=== PATIENT | male | born 1970 | race Caucasian/White ===

== ENCOUNTER 2023-04-21 05:55 | Emergency (ER) | payer BC, SELFPAY ==
[2023-04-21 06:05] VITALS: BP 161/102; PULSE 82; RESP 17; TEMP 37.3; O2SAT 94; BMI 34.2
--- NOTE | 2023-04-21 06:15 | ED.SKABFB ---
HPI - Skin/Abscess/Foreign Bdy General Chief complaint: Skin/Abscess/Foreign Body Stated complaint: rash Time Seen by Provider: 04/21/23 06:08 Source: patient Mode of arrival: Ambulatory Limitations: no limitations History of Present Illness HPI narrative: Patient is here from [facility] for work related reasons. He has been staying at a local hotel down the street. He has been there for the past 1 week. Yesterday he awoke with multiple painful but itchy lesions diffusely spread around his body including arms legs and trunk. He awoke this morning with more lesions. Denies any new chemicals or detergents. He is in the hotel by himself, not sharing with any companions. These lesions are elevated and grouped together in all same stages. They are erythematous. Mildly tender to touch. Patient states has history of bullous pemphigus however this is not the usual appearance Related Data Previous Rx's Medication Instructions Recorded famotidine 20 mg tablet 20 mg PO BID #20 tabs 04/21/23 methylprednisolone 4 mg tablets in See Rx Instructions PO .COMPLEX 04/21/23 a dose pack (Medrol (Jose Raul)) #21 ea Allergies Allergy/AdvReac Type Severity Reaction Status Date / Time No Known Drug Allergies Allergy Verified 04/21/23 06:05 Review of Systems Review of Systems Narrative: GENERAL: negative chills, fatigue, malaise, fever, sweats. HEENT: negative sinus pain, ear pain, sore throat RESPIRATORY: negative dyspnea, cough CARDIOVASCULAR: negative chest pain, palpitations GASTROINTESTINAL: negative nausea, vomiting, abdominal pain : negative dysuria, frequency, hematuria MUSCULOSKELETAL: negative muscle or bony pain SKIN: Positive rash, skin lesions NEUROLOGIC: negative weakness, numbness ROS Unobtainable: All systems reviewed & are unremarkable except as noted in HPI and below Patient History Social History Smoking Status: Current every day smoker Smoking Status: Current every day smoker tobacco type: cigarettes alcohol intake frequency: 3 or more drinks per day Alcohol type: beer Substance Use Type: does not use Exam Narrative Exam Narrative: GENERAL: in no distress, not toxic not dyspneic HEAD: Normocephalic. EYES: Pupils equal round ENT: Mucous membranes moist. NECK: Trachea midline. EXTREMITIES: No gross deformities. BACK: No flank tenderness. NEURO: AOx4. SKIN: Warm and dry, there is global diffuse papular insect bite appearance that are grouped in clusters, however there are all in same stages, they are spread throughout the arms and legs and back. Sparing the abdomen and chest. They are on the neck as well. PSYCH: Not anxious, is cooperative Initial Vital Signs Initial Vital Signs: Vital Signs Temperature 99.1 F 04/21/23 06:05 Pulse Rate 82 04/21/23 06:05 Respiratory Rate 17 04/21/23 06:05 Blood Pressure 161/102 H 04/21/23 06:05 Pulse Oximetry 94 04/21/23 06:05 Oxygen Delivery Method Room Air 04/21/23 06:05 Course Orders Ordered: Discontinued Medications Famotidine (Famotidine 20 Mg Tablet) 20 mg PO NOW ONE Stop: 04/21/23 06:16 Last Admin: 04/21/23 06:25 Dose: 20 mg Documented By: Prednisone (Prednisone 20 Mg Tablet) 60 mg PO NOW ONE Stop: 04/21/23 06:15 Last Admin: 04/21/23 06:24 Dose: 60 mg Documented By: Vital Signs Vital signs: Vital Signs - 8 hr 04/21/23 06:05 Temperature 99.1 F Pulse Rate 82 Respiratory Rate 17 Blood Pressure 161/102 H Pulse Oximetry 94 Oxygen Delivery Method Room Air MDM - Skin/Abscess/Foreign Bdy MDM Narrative Medical decision making narrative: Patient is here from [facility] for work related reasons. He has been staying at a local hotel down the street. He has been there for the past 1 week. Yesterday he awoke with multiple painful but itchy lesions diffusely spread around his body including arms legs and trunk. He awoke this morning with more lesions. Denies any new chemicals or detergents. He is in the hotel by himself, not sharing with any companions. These lesions are elevated and grouped together in all same stages. They are erythematous. Mildly tender to touch. Patient states has history of bullous pemphigus however this is not the usual appearance After history and exam prednisone ordered MDM CC: Rash Complicating co-morbidities: Bullous pemphigus Data collected from: Patient Medical records reviewed: No recent visit here for this complaint Differential considered: Includes but not limited to urticaria insect bite shingles chickenpox Exam documented above, pertinent findings include: Multiple diffuse papular lesions Lab Test results independently reviewed as above. Pertinent findings: None indicated Treatments: Prednisone Pepcid Re-evaluations: Reviewed physical finding with patient and informed him likely bedbug bites. He will need to have all of his linens and clothes in hot wash. He needs to be careful to bring close back to his home. He is leaving the hotel today. Discussion: Appropriate for discharge home. I will prescribe short course of steroids and Pepcid. These are self-limiting insect bites. No signs of infection from these bites. Return precautions reviewed with him. He desire discharge home Diagnosis: Insect bite Discharge Plan Departure Patient Disposition: Home Clinical Impression: Insect bites Instructions: Insect Bites and Stings Activity Restrictions/Additional Instructions: Your rash appears to be insect bites. Prescription steroids have been provided for you as well as Pepcid to help for allergic reaction. Please be careful with returning your clothing back to your home from the hotel. Be sure to have all clothing and linens in hot washed before returning home. Return if worse if any questions or concerns Prescriptions: New methylprednisolone [Medrol (Jose Raul)] 4 mg tablets,dose pack See Rx Instructions .ROUTE .COMPLEX Qty: 21 0RF Rx Instructions: orally per package directions famotidine 20 mg tablet 20 mg PO BID Qty: 20 0RF Stand Alone Forms: Patient Portal/API
[2023-04-21] MEDS: predniSONE 20 MG TABLET 60 MG PO (06:24)
[2023-04-21] MEDS: FAMOTIDINE 20 MG TABLET PO (06:25)
== END 2023-04-21 06:34 | disposition home or self-care (01) ==
PROVIDERS: Emergency Provider Emergency Medicine
DX: R21 Rash and other nonspecific skin eruption (principal); W57.XXXA Bitten or stung by nonvenomous insect and other nonvenomous arthropods, initial encounter
CPT/HCPCS: 99283; A9270